=== PATIENT | female | born 1950 ===

== ENCOUNTER 2021-06-03 05:10 | Day surgery (SDC) | payer OTHER ==
[~2021-06-03 05:10] MED LIST: SYNTHROID50 MCG PO
== END 2021-06-03 14:50 | disposition home or self-care (01) ==
LOC: CIR.AMB 05:10
PROVIDERS: ATTEND Otolaryngology Otology & Neurotology
DX: H72.01 Central perforation of tympanic membrane, right ear (principal); H71.91 Unspecified cholesteatoma, right ear; H74.01 Tympanosclerosis, right ear; H66.91 Otitis media, unspecified, right ear; D68.9 Coagulation defect, unspecified; J45.909 Unspecified asthma, uncomplicated; Z20.822 Contact with and (suspected) exposure to COVID-19

== ENCOUNTER 2021-11-24 17:18 | Inpatient (IN) | payer OTHER ==
[~2021-11-24] VITALS: Ht 160 cm; Wt 68.0 kg
[2021-11-24] MEDS ORDERED: CIPRO (17:33)
[2021-11-26] MEDS ORDERED: CIPROFLOXACIN500 MG (13:23)
[2021-11-26] MEDS ORDERED: FAMOTIDINE20 MG (13:23)
== END 2021-11-30 17:40 | disposition home or self-care (01) | DRG 393 ==
LOC: ER 17:18 → MEDI 11-25 10:05
PROVIDERS: ADMIT Internal Medicine; ATTEND Internal Medicine
DX: K63.1 Perforation of intestine (nontraumatic) (principal); K68.9 Other disorders of retroperitoneum; K57.30 Diverticulosis of large intestine without perforation or abscess without bleeding; E03.9 Hypothyroidism, unspecified; Z20.822 Contact with and (suspected) exposure to COVID-19

== ENCOUNTER 2022-03-02 10:15 | Inpatient (IN) | payer OTHER ==
[~2022-03-02] VITALS: Ht 160 cm; Wt 67.1 kg
[~2022-03-02 10:15] MED LIST changes: +CIPRO; +CIPROFLOXACIN500 MG; +FAMOTIDINE20 MG
== END 2022-03-08 11:35 | disposition home or self-care (01) | DRG 331 ==
LOC: SURG 03-05 06:27 → O/R 03-05 06:27 → SURG 03-05 10:15
PROVIDERS: ADMIT Specialist; ATTEND Specialist
PROC: 0DBP4ZZ Excision of Rectum, Percutaneous Endoscopic Approach (ICD-10-PCS; 2022-03-05)
PROC: 0DJD8ZZ Inspection of Lower Intestinal Tract, Via Natural or Artificial Opening Endoscopic (ICD-10-PCS; 2022-03-05)
PROC: 0DTN4ZZ Resection of Sigmoid Colon, Percutaneous Endoscopic Approach (ICD-10-PCS; principal; 2022-03-05 11:00)
DX: K57.32 Diverticulitis of large intestine without perforation or abscess without bleeding (principal)